=== PATIENT | female | born 1995 | race Caucasian/White ===

== ENCOUNTER → 2018-11-09 14:49 | Outpatient (CLI) | payer OTHER, SELFPAY ==
[2018-11-13 15:48] LABS: QuantiFERON TB NEGATIVE (Negative)
== END ==
PROVIDERS: Family Provider Family Medicine; PCP Family Medicine; Visit Provider Student in an Organized Health Care Education/Training Program
DX: Z02.1 Encounter for pre-employment examination (principal)
CPT/HCPCS: 36415; 86480